=== PATIENT | female | born 1960 | race Caucasian/White ===

== ENCOUNTER 2022-07-16 20:00 | Emergency (ER) | payer MEDICARE, OTHER ==
[~2022-07-16] VITALS: Ht 154.9 cm; Wt 120.2 kg
--- NOTE | 2022-07-16 20:00 | NUR ---
pt went to rest room
[2022-07-16 20:05] VITALS: BP 220/202
--- NOTE | 2022-07-16 20:06 | NUR ---
61 YO F BIBA FROM HOME WITH C/C OF DIFFICULTY SWALLOWING. STATES SHE TOOK A BITE A FOOD AND FELT "IT WENT DOWN THE WRONG TUBE". PT STATES SHE HAS DRANK SPRITE AND WATER WITH NO RELIEF. REPORTS 10/05 MID CHEST PAIN RAD TO RT BREAST S/P DIFFICULTY SWALLOWING. PT IS HYPERTENSIVE, UNABLE TO TAKE HTN MEDICATION. PER EMS 12-LEAD IS CLEAN NSR 78. HX:HTN NKA
--- NOTE | 2022-07-16 20:06 | NUR ---
PT YAMILE ALS. TAKEN TO BED 8
--- NOTE | 2022-07-16 20:30 | NUR ---
Dr. Gannon examining patient.
[2022-07-16] MEDS ORDERED: ALUMINUM HYD/MAG/SIMETHICONE 30 ML UDC PO ONE (20:40)
--- NOTE | 2022-07-16 21:18 | NUR ---
PT RETURN FROM RADIOL[facility]
[2022-07-16] MEDS ORDERED: CLONIDINE HYDROCHLORIDE 0.1 MG TAB PO ONE (21:40)
[2022-07-16] MEDS ORDERED: atenoloL 25 MG TAB PO ONE (21:40)
[2022-07-16] MEDS ORDERED: IBUPROFEN 600 MG TAB PO ONE (22:10)
[2022-07-16] MEDS ORDERED: ACETAMINOPHEN EXTRA STRENGTH 500 MG TAB PO ONE (22:10)
--- NOTE | 2022-07-16 22:24 | NUR ---
Pt refused meds
[2022-07-16 22:33] LABS: BASOPHILS # (AUTO) 0.1 K/uL (0.00-0.22); BASOPHILS % (AUTO) 0.6 % (0.0-2.0); EOSINOPHILS # (AUTO) 0.1 K/uL (0-0.4); EOSINOPHILS % (AUTO) 0.6 % (0.0-4.0); HEMATOCRIT 38.8 % (36-48); HEMOGLOBIN 12.7 g/dL (12.0-16.0); LYMPHOCYTES # (AUTO) 1.4 K/uL (2.5-16.5); LYMPHOCYTES % (AUTO) 10.2 % (20.5-51.1); MEAN CORPUSCULAR HEMOGLOBIN 27 pg (27-31); MEAN CORPUSCULAR HGB CONC 33 g/dL (33-37); MEAN CORPUSCULAR VOLUME 82.6 fL (80-94); MONOCYTES # (AUTO) 0.6 K/uL (0.8-1.0); MONOCYTES % (AUTO) 4.8 % (1.7-9.3); NEUTROPHILS # (AUTO) 11.2 K/uL (1.8-7.7); NEUTROPHILS % (AUTO) 83.8 % (42.2-75.2); PLATELET COUNT (AUTO) 269 K/uL (140-450); RED BLOOD CELL COUNT(AUTO) 4.69 MIL/uL (4.20-5.40); RED CELL DISTRIBUTION WIDTH 15.9 % (11.6-13.7); WHITE BLOOD COUNT (AUTO) 13.3 K/uL (4.8-10.8)
[2022-07-16 23:03] LABS: ALBUMIN 3.2 g/dL (3.4-5.0); ANION GAP 8.6 (8-16); ASPARTATE AMINOTRANSFERASE 17 U/L (15-37); CARBON DIOXIDE 30.9 mmol/L (21-32); CHLORIDE 98 mmol/L (98-107); CREATININE 0.8 mg/dL (0.6-1.3); GFR ARICAN-AMERICAN 93 mL/min (>90); GLUCOSE 200 mg/dL (74-106); POTASSIUM 3.5 mmol/L (3.5-5.1); SODIUM SERUM 134 mmol/L (136-145); TOTAL BILIRUBIN 0.4 mg/dL (0.0-1.0); UREA NITROGEN, BLOOD 14 mg/dL (7-18)
[2022-07-16] MEDS ORDERED: FAMO-92 PO (23:38)
[2022-07-16 23:45] VITALS: BP 133/42
--- NOTE | 2022-07-16 23:47 | NUR ---
Patient discharged with v/s stable. Written and verbal after care instructions given and explained. Patient alert, oriented and verbalized understanding of instructions. Ambulatory with steady gait. All questions addressed prior to discharge. ID band removed. Patient advised to follow up with PMD. Rx of famotadine given. Patient educated on indication of medication including possible reaction and side effects. Opportunity to ask questions provided and answered.
== END 2022-07-16 23:47 | disposition home or self-care (01) ==
LOC: MED 20:00
DX: K21.9 Gastro-esophageal reflux disease without esophagitis (principal); E11.9 Type 2 diabetes mellitus without complications; I10 Essential (primary) hypertension; Z79.4 Long term (current) use of insulin; Z79.899 Other long term (current) drug therapy
CPT/HCPCS: 36415; 70360; 71045; 80053; 84484; 85025; 93005; 99285